=== PATIENT | female | born 1995 | race Caucasian/White ===

== ENCOUNTER 2017-01-30 18:11 | Emergency (ER) | payer OTHER ==
[~2017-01-30] VITALS: Ht 172.7 cm; Wt 103.9 kg
[2017-01-30] MEDS ORDERED: MECLIZINE 25 MG TABLET PO ONE (20:00)
[2017-01-30] MEDS ORDERED: MECL25CH PO (20:20)
[2017-01-30 20:26] VITALS: BP 124/72
== END 2017-01-30 20:27 | disposition home or self-care (01) ==
LOC: M ED 19:54
DX: H83.09 Labyrinthitis, unspecified ear (principal)